=== PATIENT | male | born 1970 | race Caucasian/White ===

== ENCOUNTER 2017-03-20 12:41 | Emergency (ER) | payer MEDICAID ==
[2017-03-20 13:12] VITALS: O2SAT 95
--- NOTE | 2017-03-20 15:27 | EDPHY ---
General Narrative: CHIEF COMPLAINT: Dental pain, flu-like symptoms HISTORY OF PRESENT ILLNESS: Patient complains of dental pain, cough, congestion, malaise, body aches and cough. He feels as though he has a dental infection. He broke the 2 several months ago, but he feels that became infected 2 days ago. It is the back lower molar on the left side. He has some redness around it. He has difficulty swallowing due to pain. No difficulty opening or closing the mouth. He also has the above flu-like symptoms that have not improved. He went to an urgent care and they sent him to our facility for higher level of care. He has not seen a dental "in a long time" due to lack of insurance. He has no other associated complaints or modifying factors. REVIEW OF SYSTEMS: Ten systems reviewed and are negative unless otherwise noted in the HPI PCP: None currently. Trying to establish SPECIALISTS: None PAST MEDICAL HISTORY: None PAST SURGICAL HISTORY: No recent surgeries SOCIAL HISTORY: Nonsmoker. FAMILY HISTORY: Noncontributory EXAMINATION General Appearance: Alert, no distress Head: normocephalic, atraumatic Eyes: Pupils equal and round, no conjunctival pallor or injection ENT, Mouth: Mucous membranes moist. Uvula is midline. The airway is widely patent. There is no trismus. There is no fluctuance of the mucosa. No evidence of abscess or abnormality of the floor of the mouth. There is erythema around the gumline of tooth number 32. There is evidence of pulpitis. Neck: Normal inspection, supple, non-tender. No edema. Palpable lymphadenopathy. Painless range of motion all planes. No meningeal signs Respiratory: Lungs are clear to auscultation. No wheezing, rhonchi or crackles Cardiovascular: Regular rate and rhythm. No murmur Neurological: A&O, nonfocal, normal gait Skin: Warm and dry, no rash. No petechiae or purpura. No cellulitis of the face or neck Extremities: Nontender, no pedal edema Psychiatric: Mood and affect normal DIFFERENTIAL DIAGNOSES: Including but not limited to dental abscess, pulpitis, dental caries, influenza MDM: 3:30 p.m. Dental pain with early pulpitis of tooth number 32. No abscess. No trismus. No abnormality of the soft tissue of the neck. His vital signs are within normal limits. I think he may actually have influenza concomitant with this. He has declined flu testing. He has declined Tamiflu. I will treat him with antibiotics to cover his dental infection. He has plans to call dental aid tomorrow morning. I attempted to contact him but there was no answer. I left information for them to return our call and contact the patient. We discussed ED precautions for worsening symptoms, difficulty open his mouth, difficulty swallowing. He is in no acute distress and discharged home stable condition. SUPERVISION: This patient was independently evaluated without direct involvement of or examination by the attending physician. - History Smoking Status: Never smoked - Objective Vital Signs: Initial Vital Signs Temperature (C) 98.4 F 03/20/17 13:09 Heart Rate 90 03/20/17 13:09 Respiratory Rate 16 03/20/17 13:09 Blood Pressure 143/94 H 03/20/17 13:09 O2 Sat (%) 95 03/20/17 13:09 O2 Delivery Mode Room Air Allergies/Adverse Reactions: No Known Allergies Allergy (Unverified 03/20/17 13:08) Home Medications: Medication Instructions Recorded AMOXICILLIN 03/20/17 Amoxicillin/Clavulanate Pot 875 mg PO BID #14 tab 03/20/17 [Augmentin 875 MG TAB (*)] oxyCODONE HCL/ACETAMINOPHEN 1 each PO Q4-6PRN PRN #11 tablet 03/20/17 [Percocet 5-325 mg Tablet] Departure - Departure Disposition: Home, Routine, Self-Care Clinical Impression: Infected dental caries, Flu-like symptoms Condition: Good Instructions: Dental Abscess (ED), Influenza (ED) Additional Instructions: 1. Medications as prescribed as needed. 2. Contact dental aid for outpatient follow-up tomorrow 3. ED precautions for worsening symptoms as discussed 4. Recommend [id number] anti-inflammatories, Mucinex and dextromethorphan as instructed on the boxes Referrals: Dental Aid [Outside] - As per Instructions Prescriptions: Amoxicillin/Clavulanate Pot [Augmentin 875 MG TAB (*)] 875 mg PO BID #14 tab oxyCODONE HCL/ACETAMINOPHEN [Percocet 5-325 mg Tablet] 1 each PO Q4-6PRN PRN # 11 tablet PRN Reason: Pain, Breakthrough
[2017-03-20] MEDS ORDERED: IBUPROFEN 600 MG TAB PO ONE ×2 (16:01→16:02)
[2017-03-20] MEDS ORDERED: ONDANSETRON DISINTEGRATING 4 MG TAB PO ONE (16:01)
[2017-03-20] MEDS ORDERED: ONDANSETRON DISINTEGRATING 4 MG TAB ONE (16:02)
[2017-03-20 16:34] VITALS: BP 140/91; PULSE 105; RESP 18; TEMP 102.7
== END 2017-03-20 16:35 | disposition home or self-care (01) ==
DX: K02.9 Dental caries, unspecified (principal); K04.7 Periapical abscess without sinus; J11.1 Influenza due to unidentified influenza virus with other respiratory manifestations